=== PATIENT | female | born 1985 | race Caucasian/White ===

== ENCOUNTER → 2024-05-16 | Outpatient (CLI) | payer OTHER ==
[2024-05-16 20:05] LABS: Bacterial Vaginosis PCR Negative (NEGATIVE); Candida Group, PCR NOT DETECTED (NOT DETECT); Candida glabrata-krusei, PCR NOT DETECTED (NOT DETECT)
== END ==
LOC: LAB 16:51 → LAB SHORT 16:51
PROVIDERS: General Practice
DX: N89.8 Other specified noninflammatory disorders of vagina (principal)
CPT/HCPCS: 87481; 87661; 87801